=== PATIENT | male | born 2000 | race Asian ===

== ENCOUNTER 2025-09-10 16:00 | Emergency (ER) | payer OTHER ==
[2025-09-10] MEDS ORDERED: Ibuprofen 200 MG TAB ONE (16:28)
== END 2025-09-10 20:00 | disposition home or self-care (01) ==
LOC: CSHERS 16:00
DX: J02.0 Streptococcal pharyngitis (principal); R50.9 Fever, unspecified
CPT/HCPCS: 71046; 87428